=== PATIENT | female | born 1995 | race Caucasian/White ===

== ENCOUNTER 2017-04-19 13:36 | Emergency (ER) | payer BC ==
[2017-04-19] MEDS ORDERED: ORPHENADRINE CITRATE 30 MG/ML VIAL IM ONE (15:40)
[2017-04-19] MEDS ORDERED: KETOROLAC TROMETHAMINE 30 MG/ML VIAL IM ONE (15:40)
[2017-04-19] MEDS ORDERED: ORPHENADRINE CITRATE 30 MG/ML VIAL ONE (15:47)
[2017-04-19] MEDS ORDERED: KETOROLAC TROMETHAMINE 30 MG/ML VIAL ONE (15:47)
--- NOTE | 2017-04-19 16:31 | ERNOTE ---
Back Pain ER HPI Date of Service: 04/19/17 Presenting Symptoms: other - back pain' Time Seen by Provider: 04/19/17 15:35 Source: patient Exam Limitations: no limitations Immunizations: IMMUNIZATION HX Immunizations Up to Date Yes History of Influenza Vaccine No Hx Pneumococcal Vaccination No Allergies/Adverse Reactions: Allergies No Known Allergies Allergy (Unverified 07/20/13 17:09) Home Medications: HOME MEDICATIONS Cyclobenzaprine HCl [Flexeril] 10 mg PO TID PRN #20 tab 04/19/17 [Last Taken Unknown] Narrative: Patient has been having back spasms since tuesday. Right side greater than left. This has been present since Tuesday. She had been lifting boxes. No focal N/T/W. No loss of bowel or bladder control. No radicular Sx. No fever, CP or SOB, no abdominal pain. No pain with urination. Pain spasmotic, can be severe. Worse with movement and twisting. Timing: Reports: constant Location of pain: Reports: upper back, mid back, lower back, no radiation Activities at Onset: Reports: other - lifting Recent Injury?: Reports: yes Possible Precipitating Factor: Reports: lifting Modifying Factors - (Improves): Reports: other - rest. Modifying Factors - (Worsens): Reports: movement to right, movement to left, movement flexion Associated Symptoms: Denies: fever/chills, constipation/incontinence, nausea/ vomiting, problems urinating, difficulty walking, numbess/weakness in legs Prior Treament: Denies: recently seen Review of Systems - Review of Systems Constitutional: Absent: fever Respiratory: Absent: shortness of breath Cardiology: Absent: chest pain Gastrointestinal/Abdominal: Absent: abdominal pain Musculoskeletal: Present: See HPI Skin: Absent: rash Neurological: Absent: weakness - Patient's Past Medical History Patient History - Medical: Anxiety, Depression Patient History - Cardiac/Respiratory: No pertinent hx Patient History - Cancer: No Hx of Cancer Patient History - Surgical Procedures: Appendectomy Patient History - Other: None LMP (females 10-50): 1 month - Social History Living Situations: home Abuse History: No History of abuse Psych History: Hx of Anxiety, Hx of Depression Smoking Status: Current some day smoker Have you smoked in the past 12 months: Yes Alcohol Use: heavy Drug Use: marijuana - Immunizations Immunizations Up to Date: Yes Hx Pneumococcal Vaccination: No History of Influenza Vaccine: No Physical Exam - Physical Exam General Appearance: Present: alert, no apparent distress Head Exam: Present: normal inspection, no evidence of injury Eye Exam: Normal inspection: bilateral, PERRL: bilateral Ears, Nose, Throat: Present: normal ENT inspection Neck: Present: normal inspection Respiratory: Present: no respiratory distress, no accessory muscle use, lungs clear Cardiovascular/Chest: Present: regular rate, rhythm Gastrointestinal/Abdominal: Present: normal bowel sounds, nontender, soft Back Exam: Present: no vertebral tenderness, other - There is diffuse paraspinal msucular tendenress right greater than left. Palpation of the muscualture completely reproduces her pain. Especially low back. Significant point tendenress low back on the right. Her pain is completely reproduced with musclar palpation. 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 Absent: motor weakness Skin Exam: Present: normal color, warm/dry ED Progress - Vital Signs Patient's Vital Signs:: I have reviewed the patient's vital signs. Vital Signs: Vital Signs 04/19/17 13:57 Temperature 35.8 C L Pulse Rate 75 Respiratory 16 Rate Blood Pressure 154/77 O2 Sat by Pulse 100 Oximetry - X-Ray X-Ray #1 X-Ray: thoracic Interpretation: Interp. by me X-ray Comments: No acute process X-Ray #2 X-Ray: lumbosacral Interpretation: Interp. by me X-ray Comments: No acute process - Progress/Reassessment Chief Complaint: Back Pain Progress Note-Subjective: 04/19/17 16:28 Clinically this is all muscular etiology. Nothing to suggest PE, kidney stone, neuro deficit, cauda eqina syndrome, infectious process or other life/limb threat. She feels like going home. I disucssed warning signs and reasons to return as well as the need for close f/u. Departure Clinical Impression: Musculoskeletal pain - Departure Disposition: Home self-care Condition: Stable Instructions: Musculoskeletal Pain Additional Instructions: Rest. Fluids. No driving with medications. Return for increased pain, numbness, tingling, weakness, fever, trouble with blowel or bladder control or if your condition or changes in any way. Referrals: Ruy Luu MD [Primary Care Provider] - Prescriptions: Cyclobenzaprine HCl [Flexeril] 10 mg PO TID PRN #20 tab PRN Reason: MUSCLE SPASMS
[2017-04-19 17:44] VITALS: BP 135/72
== END 2017-04-19 16:28 | disposition home or self-care (01) ==
LOC: ER 13:36
DX: M79.1 Myalgia (principal); F17.200 Nicotine dependence, unspecified, uncomplicated